=== PATIENT | male | born 1950 | race Caucasian/White ===

== ENCOUNTER 2016-03-12 06:36 | Inpatient (IN) ==
[2016-03-12] MEDS ORDERED: *HR* Succinylcholine 200 MG/10 ML VIAL IVP ONE (07:08)
[2016-03-12] MEDS ORDERED: *HR* Phenylephrine 10 MG/ML VIAL ONE (07:08)
[2016-03-12] MEDS ORDERED: Ondansetron 4 MG/2 ML VIAL ONE (07:08)
[2016-03-12] MEDS ORDERED: Lidocaine -MPF 4% 5 ML AMPUL ONE (07:08)
[2016-03-12] MEDS ORDERED: Lidocaine -MPF 2% 2 ML VIAL ONE ×3 (07:08→11:24)
[2016-03-12] MEDS ORDERED: *HR* Rocuronium Bromide 50 MG/5 ML VIAL ONE (07:08)
[2016-03-12] MEDS ORDERED: Dexamethasone 4 MG/ML VIAL ONE (07:08)
[2016-03-12] MEDS ORDERED: *HR* Propofol 200 MG/20 ML VIAL IVP ONE (07:09)
[2016-03-12] MEDS ORDERED: *HR* FentaNYL (PF) 100 MCG/2 ML VIAL ONE (07:09)
[2016-03-12] MEDS ORDERED: *HR* Heparin 5,000 UNIT/ML VIAL ONE (07:09)
[2016-03-12] MEDS ORDERED: *HR* Remifentanil 2 MG VIAL IVP ONE (07:10)
[2016-03-12] MEDS ORDERED: Albuterol 2.5 MG/3 ML NEBULIZER IH ONE (07:13)
[2016-03-12] MEDS ORDERED: CeFAZolin Pre 2,000 MG/100 ML 2,000 MG/100 ML BAG IVPB ONE (07:13)
[2016-03-12] MEDS ORDERED: NiCARdipine 2.5 MG/10 ML Syringe IVPB ONE (07:31)
[2016-03-12] MEDS ORDERED: Nitroglycerin 0 MG/0 ML INFUS..BTL IVC ONE (07:33)
[2016-03-12] MEDS ORDERED: Heparin 1,000 UNITS/500 mL NS 500 ML ONE ×2 (07:39→07:58)
[2016-03-12] MEDS: Ringers Solution, Lactated 1,000 ML IVC SCH ×3 (07:46→12:01)
[2016-03-12] MEDS ORDERED: Vancomycin 1,000 MG VIAL ONE ×2 (07:58→09:16)
[2016-03-12] MEDS ORDERED: Bupivacaine-MPF 0.25% 10 ML VIAL ONE (07:58)
[2016-03-12] MEDS ORDERED: Protamine Sulfate 50 MG/5 ML VIAL IVP ONE ×2 (07:58→11:31)
[2016-03-12] MEDS ORDERED: Lidocaine 1% 20 ML MDV ONE (07:58)
--- NOTE | 2016-03-12 07:59 | Anesthesia Evaluation PreOp ---
Date of Encounter: 03/12/16 Time of Encounter: 07:56 - Past History Planned Operation: R CEA (redo) Cardiac History: HTN, Hyperlipidemia, Cardiac Surgery (CABG x 3 in 2005), Other (can walk up a flight of stairs, PVD) Pulmonary History: Smoker [employer] History: Denies Any Significant HX Other Medical History: Denies Any Significant HX Anesthesia History: No Prior Anesthetic Complications Alcohol Use: none Drug use: none Medications and Allergies Aspirin 81 mg PO DAILY 03/12/16 [History] Clopidogrel [Plavix] 75 mg PO DAILY 03/12/16 [History] Lisinopril 2.5 mg PO HS 03/12/16 [History] Metoprolol [Lopressor] 100 mg PO BID 03/12/16 [History] Simvastatin [Zocor] 40 mg PO HS 03/12/16 [History] Allergies No Known Allergies Allergy (Verified 03/12/16 07:29) - Meds/Allergy Pre-op Review Medications Reviewed: Yes Allergies Reviewed: Yes Beta Blockers on Current Med List: Yes If Beta Blockers taken, Date/Time (Last Dose taken): 03-12-16 metoprolol 5:30 Anesthesia Results - Labs Laboratory Tests 02/25/16 02/25/16 02/25/16 13:58 13:58 13:58 WBC 4.7 Hgb 13.7 Hct 38.2 Plt Count 194 PT 10.7 INR 1.0 APTT 30.8 Sodium 135 L Potassium 4.9 H Chloride 102 Carbon Dioxide 25 BUN 8 Creatinine 0.75 Est GFR ( Amer) > 60 Est GFR (Non-Af Amer) > 60 BUN/Creatinine Ratio 11 Glucose 101 H Calculated Osmolality 278 L Calcium 9.0 - Imaging EKG: report reviewed, image reviewed (SR, poss LAE) Anesthesia Exam Last Vital Signs Temp 97.7 F 03/12/16 07:31 Pulse 53 03/12/16 07:31 Resp 18 03/12/16 07:31 BP 146/74 03/12/16 07:31 Pulse Ox 98 03/12/16 07:31 Weight: 58 kg NPO (# of Hours): >> 8 hrs - HEENT Pupil (Motor): Pupils equal, EOMI Mallampati: II Teeth: Edentulous Oral Opening: Greater than 3 - 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
--- NOTE | 2016-03-12 08:02 | History & Physical Report ---
Date of Encounter: 03/12/16 Time of Encounter: 07:55 24 Hour HP Update - Instructions Instructions: If the History and Physical is less than 30 days old and was completed prior to A.M. admission and or procedure and has NOT been updated on calendar day of procedure please complete this update prior to performing procedure. - Update Patient reports changes in Medical Condition: No Changes in assessment/condition: No Changes in Medication: No Preop tests/diagnostics Reviewed: Yes Surgery Remains Indicated: Yes Consent for Planned Operative Procedure(s) Verified: Yes - Pre-Operative Checklist Preoperative Checklist Indicated: Yes Prophylactic Antibiotic Ordered: Yes (vancomycin due to risk of MRSA) Home Medications Include Beta Nan: Yes Beta Nan Taken Today (Day of Surgery): Yes Beta Nan Taken Yesterday (Day Prior to Surgery): Yes Is VTE Prophylaxis Indicated?: Yes
[2016-03-12] MEDS ORDERED: *HR* HYDROmorphone (PF) 1 MG/ML SYRINGE IVP PRN (09:26)
[2016-03-12] MEDS ORDERED: Ipratropium Neb 0.5 MG NEBULIZER IH PRN (09:26)
[2016-03-12] MEDS ORDERED: Ondansetron 4 MG/2 ML VIAL IVP PRN ×2 (09:26→13:28)
[2016-03-12] MEDS ORDERED: Albuterol 2.5 MG/3 ML NEBULIZER IH PRN (09:26)
[2016-03-12] MEDS ORDERED: *HR* Labetalol 100 MG/20 ML MDV IVP PRN (09:26)
--- NOTE | 2016-03-12 09:53 | Anesthesia Procedures ---
Date of Encounter: 03/12/16 Time of Encounter: 08:35 Procedures: Anesthesia - Arterial Line Consent obtained: written consent Time out performed: Yes Size (Gauge): 20 Length (inches): Other (1.16) Technique Used: sterile prep, guide wire technique, direct puncture technique Post-Procedure: line taped into place, dry sterile dressing placed Patient tolerated procedure: no complications Complications: none Site: Radial L Vitals: see anesthesia record
[2016-03-12] MEDS ORDERED: EPHEDrine 50 MG/ML VIAL ONE (09:54)
[2016-03-12] MEDS ORDERED: *HR* HYDROmorphone 2 MG/ML SYRINGE ONE (11:11)
[2016-03-12] MEDS ORDERED: *HR* Labetalol 20 MG/4 ML SYRINGE IVP ONE (11:13)
[2016-03-12] MEDS ORDERED: Esmolol 100 MG/10 ML VIAL IVP ONE (11:14)
[2016-03-12] MEDS ORDERED: Dexmedetomidine HCl 200 MCG/50 ML MLS IVC ONE (11:54)
--- NOTE | 2016-03-12 12:36 | Operative Note ---
Date of procedure: 03/12/16 Pre-op diagnosis: Recurrent 80-99% Right internal carotid artery stenosis Post-op diagnosis: same Procedure: 1. Reoperative right carotid endarterectomy with hemashield patch angioplasty. Complications: None Anesthesia: EVELYNEA Surgeon: Jose Leon Estimated blood loss (cc): 100 Specimen: Right carotid plaque Condition: stable Disposition: PACU Procedure in Detail: Indications: The patient is a 66 year old male with a history of carotid stenosis. He previously underwent a right carotid endarterectomy. He recently underwent a carotid duplex and was found to have a recurrent 80-99% right internal carotid artery stenosis. A reoperative right carotid endarterectomy was recommended. Procedure: The patient was identified in the preoperative area. The risks, benefits, and alternatives of the procedure were discussed and all questions were answered. The patient was then taken to the operating room and placed in supine position on the operating table. After induction of general endotracheal anesthesia, the patient was cleaned and draped in normal sterile fashion. A longitudinal incision was made anterior to the left sternocleidomastoid muscle through his previous scar. Hemostasis was obtained via electrocautery. Through a process of blunt, sharp, and electrocautery dissection, the platysma was traversed. The jugular vein was identifiedand retracted lateral. Significant dissection through inflammation and scar was performed in order to expose the carotid bifurcation. Patient received 3000 units of heparin intravenously at this time. Proximal dissection of the common and external carotid arteries were performed circumferentially. Dissection of the internal carotid was performed circumferentially. Vessels loops were passed around the internal and external carotid and an umbilical tape was passed from the common carotid artery. The patient received additional 2000 units of heparin intravenously. Additional heparin was given throughout the case to maintain adequate anticoagulation. After waiting adequate time for the heparin to circulate, the vessels were occluded and a longitudinal arteriotomy was made into the common carotid artery extending into the internal carotid beyond the plaque. Vigorous pulsatile retrograde flow was noted from the internal carotid artery upon release of the loop; therefore, no shunt was placed. A dental Elbert was used to perform a standard endarterectomy. Proximal and distal endpoints were inspected. No elevated flaps were noted. Additional heparin was given throughout the procedure to maintain adequate anticoagulation. A Hemashield patch was cut to fit the defect and sutured in place with running 6 -0 Prolene. Prior to completing the closure, each vessel was flushed and then reoccluded. Heparinized saline was infused into the lumen. The patch was completed. Flow was restored in the external carotid artery, followed the common carotid artery, lastly the internal carotid artery was opened. A low resistance arterialized signal was present within the internal carotid artery beyond the patch. Thrombin and Gelfoam were used to aid in hemostasis. Meticulous hemostasis was obtained throughout the wound with electrocautery. Platelet rich and platelet poor plasma were infused into the wounds. The sternocleidomastoid was reapproximated with interrupted 3-0 Vicryl. Platelet rich and platelet poor plasma were infused into the wound. A TLS drain was brought through a separate stab incision and sutured in place with 0 silk suture. The platysma was then reapproximated with running 3-0 Vicryl. Local anesthetic was infused in the skin. A 3-0 Monocryl was used to reapproximate the skin. Sterile dressing was applied. The patient was extubated, taken to the recovery room in stable condition.
--- NOTE | 2016-03-12 12:55 | Anesthesia Evaluation Post Op ---
Date of Encounter: 03/12/16 Time of Encounter: 12:52 - Vital Signs Vital Signs: Vital Signs/O2 Sat/Glucose, Most Current Temp Pulse Resp BP Pulse Ox 03/12/16 12:28 64 14 117/63 100 03/12/16 12:18 97.1 F L 67 12 123/63 100 - Lungs Lungs: Clear Ascult./Percussion - Airway Airway: Non-obstructed - Cardiovascular Regular Rate - Mental Status Mental Status: Alert & Oriented, Answers Appropriately - Pain Pain Scale: 0 Pain Scale used: Numeric (1 - 10) - Nausea Vomiting Nausea Vomiting: Not Present - Hydration Hydration: Ice chips, Able to void - Discharge PostOp Status: Transfer Patient to floor Anes Supervising Prov Stmt: Pt seen/evaluated, R&B Discussed questions answered and consent obtained. - MD Isabel
[2016-03-12] MEDS ORDERED: *HR* HYDROcodone/Acet 5/325 mg TABLET PO PRN (13:28)
[2016-03-12] MEDS ORDERED: *HR* Promethazine 25 MG/ML VIAL IVP PRN (13:28)
[2016-03-12] MEDS ORDERED: Naloxone 0.4 MG/ML INJ IVP PRN (13:28)
[2016-03-12] MEDS ORDERED: Acetaminophen 325 MG TABLET PO PRN (13:28)
[2016-03-12] MEDS ORDERED: *HR* Labetalol 20 MG/4 ML SYRINGE IVP PRN (13:28)
[2016-03-12] MEDS ORDERED: *HR* Morphine 2 MG/ML SYRINGE IVP PRN (13:28)
[2016-03-12] MEDS ORDERED: *HR* OxyCODONE Immed Rel 5 MG TABLET PO PRN (13:28)
[2016-03-12] MEDS: ceFAZolin 2,000 MG in D5% in Water 100 ML IVPB SCH (17:09)
[2016-03-12] MEDS: *HR* Metoprolol 5 MG/5 ML VIAL IVP SCH (17:09)
[2016-03-12] MEDS ORDERED: Vancomycin 750 MG in D5% in Water 250 ML IVPB ONE ×4 (19:30→23:00)
[2016-03-13] MEDS: *HR* Metoprolol 5 MG/5 ML VIAL IVP SCH ×2 (01:03→06:25)
[2016-03-13] MEDS: ceFAZolin 2,000 MG in D5% in Water 100 ML IVPB SCH (01:39)
[2016-03-13] MEDS ORDERED: *HR* Heparin 5,000 UNIT/ML VIAL SQ SCH ×2 (06:00)
[2016-03-13 07:35] VITALS: BP 102/73
--- NOTE | 2016-03-13 07:56 | Discharge Summary ---
Date of Encounter: 03/13/16 Time of Encounter: 09:10 - Discharge Diagnosis (1) Carotid stenosis, bilateral Priority: Primary Status: Acute Comments: The patient is postoperative day #1 after reoperative right carotid endarterectomy. He tolerated the procedure well. He has no neurologic deficits and his incision is healing. He will be discharged today. (2) Tobacco abuse Priority: Secondary Status: Chronic Comments: He was counseled regarding smoking cessation. (3) Essential hypertension Priority: Secondary Status: Chronic Comments: He was counseled regarding atherosclerotic risk factor reduction. (4) Mixed hyperlipidemia Priority: Secondary Status: Chronic (5) CAD (coronary artery disease) Priority: Secondary Status: Chronic Qualifiers: Coronary Disease-Associated Artery/Lesion type: bypass graft [place] vs. transplanted heart: [place] heart Associated angina: without angina Qualified Code(s): I25.810 - Atherosclerosis of coronary artery bypass graft(s) without angina pectoris (6) Ischemic cardiomyopathy Priority: Secondary Status: Chronic (7) Peripheral vascular disease Priority: Secondary Status: Chronic - Discharge Medications Prescriptions: HYDROcodone/Acet 5/325 mg [[place] 5-325 mg] 1 tab PO Q4H PRN #25 tablet PRN Reason: postoperative pain Home Medications: Aspirin 81 mg PO DAILY 03/12/16 [History] Clopidogrel [Plavix] 75 mg PO DAILY 03/12/16 [History] Lisinopril 2.5 mg PO HS 03/12/16 [History] Metoprolol [Lopressor] 100 mg PO BID 03/12/16 [History] Simvastatin [Zocor] 40 mg PO HS 03/12/16 [History] HYDROcodone/Acet 5/325 mg [[place] 5-325 mg] 1 tab PO Q4H PRN #25 tablet 03/13/16 [Rx] Allergies/Adverse Reactions: Allergies No Known Allergies Allergy (Verified 03/12/16 07:29) Date of admission: 03/12/16 13:23 Primary care physician: Uriel Masters CNP Procedure(s) Performed: Right carotid endarterectomy Discharging clinician: Jose Leon Anticipated date of discharge: 03/13/16 - Patient Status Disposition: Home, Self-Care Condition: Good Functional capacity at discharge: independent ambulation Overall status at discharge: patient is back to baseline - Discharge Instructions Instructions: Hydrocodone/Acetaminophen (By mouth), Carotid Endarterectomy (DC) Follow Up With: Jose Leon MD [Partnered Physician] - 04/27/16 11:00 am Uriel Masters CNP [Primary Care Provider] - 03/19/16 1:40 pm Additional Instructions: May remove bandage and shower 03/14/16. Wash wound gently and pat to dry. Call [phone] with questions or concerns. - Diet and Activity Activity: increase activity as tolerated Diet: advance to your usual diet - Hospital Course Hospital course: Mr. Moreno is a 66 year old male with a recurrent 80-99% right internal carotid artery stenosis. He underwent a reoprative right carotid endarterectomy. He tolerated the procedure well and was discharged in stable condition on postoperative day #1 without complication. - Time Spent with Patient Total time spent providing and/or coordinating discharge services: Exam Vital Signs, Last 4 Hours Temp Pulse Resp BP Pulse Ox 03/13/16 07:32 97.8 F 61 16 102/73 96 03/13/16 04:05 54 General: Present: Conversant, No Apparent Distress HEENT: Present: Trachea midline, Pupils equal Neck: Present: Other (incision clean, dry and intact, no drainage, no hematoma) . Absent: JVD, Lymphadenopathy Cardiac: Present: Reg Rate and Rhythm Lungs: Present: Normal Breath Sounds Neuro: Present: Alert and responsive, No focal deficits noted, Motor nerves grossly intact, Sensory nerves grossly intact Abdomen: Present: Soft Vascular: Present: Normal capillary refill Skin: Present: No rashes noted on visualized skin - VTE Documentation of Mechanical Device: Intermittent pneumatic compression device
[2016-03-13] MEDS ORDERED: Metoprolol 100 MG TABLET PO SCH (09:00)
[2016-03-13] MEDS ORDERED: Aspirin 81 MG TAB.CHEW PO SCH (09:00)
== END 2016-03-13 10:35 | disposition home or self-care (01) | DRG 24 ==
LOC: SAMDAY 06:36 → 2NNU 13:23
PROVIDERS: ADMIT Surgery; ATTEND Surgery

== ENCOUNTER 2019-12-04 16:06 | Inpatient (IN) ==
[2019-12-04 17:46] LABS: Basophils # 0.1 K/mcL (0.0-0.2); Eosinophils # 0.1 K/mcL (0.0-0.6); Lymphocytes # 0.8 K/mcL (0.6-4.6); Mean Corpuscular HGB Conc 33.3 g/dL (31.6-35.5); Mean Corpuscular Hemoglobin 32.7 pg (28.0-33.3); Mean Platelet Volume 10.8 fL (9.4-12.4); Monocytes # 0.6 K/mcL (0.0-1.3); Nucleated Red Blood Cells 0.7 /100 WBC (0); Platelet Count 212 K/mcL (140-400); Red Blood Count 3.06 M/mcL (4.19-5.50); White Blood Count 2.8 K/mcL (4.3-11.1)
[2019-12-04 17:59] LABS: BUN/Creatinine Ratio 15 (6-26); Blood Urea Nitrogen 13 mg/dL (8-23); Calcium 7.9 mg/dL (8.6-10.3); Carbon Dioxide 28 mEq/L (23-29); Chloride 93 mEq/L (98-107); Glucose 86 mg/dL (70-105); Osmolality,Calculated 273 (280-300); Potassium 2.8 mEq/L (3.5-5.1); Sodium 132 mEq/L (136-145); eGFR For African Americans > 60 (> 60); eGFR For Non-African Americans > 60 (> 60)
[2019-12-04 18:04] LABS: Troponin I 0.07 ng/mL (< 0.04)
[2019-12-04 18:08] LABS: Alanine Aminotransferase 6 Units/L (7-52); Albumin 2.6 g/dL (3.5-5.7); Albumin/Globulin Ratio 0.7 (1.1-2.2); Alkaline Phosphatase 121 Units/L (34-104); Aspartate Amino Transferase 16 Units/L (13-39); Bilirubin,Direct 0.7 mg/dL (0.0-0.2); Bilirubin,Indirect 0.8 mg/dL (0.0-1.0); Bilirubin,Total 1.5 mg/dL (0.3-1.0); Globulin 3.6 g/dL (2.4-3.5); INR 1.5; Prothrombin Time 17.1 Seconds (9.4-12.1); Total Protein 6.2 g/dL (6.4-8.9)
[2019-12-04 18:09] LABS: Neutrophils # 1.3 K/mcL (1.6-8.9); Platelet Estimate Normal (Normal)
[2019-12-04] MEDS ORDERED: Potassium Chloride Elixir 20 MEQ/15 ML UDC PO ONE ×2 (18:24→20:52)
[2019-12-04 18:44] LABS: Magnesium 1.8 mg/dL (1.6-2.6)
[2019-12-04] MEDS ORDERED: Naloxone 0.4 MG/ML INJ IVP PRN (19:58)
[2019-12-04] MEDS ORDERED: Acetaminophen 325 MG TABLET PO PRN (19:58)
[2019-12-04] MEDS ORDERED: Albumin 25% 25gram/100mL 25 GM/100 ML IV.SOLN IVPB ONE (20:47)
[2019-12-04] MEDS ORDERED: Magnesium Sulfate 1 GM/102 ML PIGGYBACK IVPB ONE (21:00)
[2019-12-04] MEDS: Nicotine 14 MG PATCH.TD24 TD SCH (22:24)
[2019-12-04] MEDS: *HR* Heparin 5,000 UNIT/ML VIAL SQ SCH (22:24)
[2019-12-04] MEDS ORDERED: 0.9 % Sodium Chloride 250 ML IV ONE (23:46)
[2019-12-04] MEDS ORDERED: 0.9 % Sodium Chloride 250 ML ONE (23:47)
[2019-12-05 00:13] LABS: Adenovirus Not Detected (Not Detect); Bordetella Pertussis Not Detected (Not Detect); Chlamydophila pneumoniae Not Detected (Not Detect); Coronavirus 229E Not Detected (Not Detect); Coronavirus HKU1 Not Detected (Not Detect); Coronavirus NL63 Not Detected (Not Detect); Coronavirus OC43 Not Detected (Not Detect); Human Metapneumovirus Not Detected (Not Detect); Human Rhinovirus/Enterovirus Not Detected (Not Detect); Influenza A Subtype 2009 H1 Not Detected (Not Detect); Influenza B Not Detected (Not Detect); Mycoplasma pneumoniae Not Detected (Not Detect); Parainfluenza Virus 1 Not Detected (Not Detect); Parainfluenza Virus 2 Not Detected (Not Detect); Parainfluenza Virus 3 Not Detected (Not Detect); Parainfluenza Virus 4 Not Detected (Not Detect); Respiratory Syncytial Virus Not Detected (Not Detect); SARS-CoV-2 Not Detected (Not Detect)
[2019-12-05 00:34] LABS: Basophils # 0.2 K/mcL (0.0-0.2); Basophils % 6.1 %; Eosinophils # 0.1 K/mcL (0.0-0.6); Eosinophils % 4.6 %; Immature Granulocytes % 4.2 % (0-4); Lymphocytes # 1.1 K/mcL (0.6-4.6); Lymphocytes % 40.5 %; Mean Corpuscular HGB Conc 33.3 g/dL (31.6-35.5); Mean Corpuscular Hemoglobin 33.7 pg (28.0-33.3); Mean Corpuscular Volume 101.1 fL (83.0-100.0); Mean Platelet Volume 11.1 fL (9.4-12.4); Monocytes # 0.5 K/mcL (0.0-1.3); Monocytes % 20.2 %; Neutrophils # 0.6 K/mcL (1.6-8.9); Platelet Count 172 K/mcL (140-400); Red Blood Count 2.67 M/mcL (4.19-5.50); Red Cell Distribution Width 16.4 % (11.5-14.5); Segmented Neutrophils % 24.4 %; White Blood Count 2.6 K/mcL (4.3-11.1)
[2019-12-05] MEDS ORDERED: Albumin 25% 25gram/100mL 25 GM/100 ML IV.SOLN IVPB ONE (00:39)
[2019-12-05 01:12] LABS: Alanine Aminotransferase 7 Units/L (7-52); Albumin 2.7 g/dL (3.5-5.7); Alkaline Phosphatase 97 Units/L (34-104); Aspartate Amino Transferase 14 Units/L (13-39); BUN/Creatinine Ratio 15 (6-26); Bilirubin,Total 1.4 mg/dL (0.3-1.0); Blood Urea Nitrogen 14 mg/dL (8-23); Calcium 7.8 mg/dL (8.6-10.3); Carbon Dioxide 25 mEq/L (23-29); Chloride 97 mEq/L (98-107); Globulin 2.8 g/dL (2.4-3.5); Glucose 98 mg/dL (70-105); Osmolality,Calculated 276 (280-300); Potassium 3.6 mEq/L (3.5-5.1); Sodium 133 mEq/L (136-145); Total Protein 5.5 g/dL (6.4-8.9); Troponin I 0.11 ng/mL (< 0.04); eGFR For African Americans > 60 (> 60); eGFR For Non-African Americans > 60 (> 60)
[2019-12-05 01:35] LABS: ABG Base Excess 4 mEq/L (-2 to 3); ABG HCO3 28 mEq/L (21-27); ABG Oxygen Saturation 100 % (95-98); ABG PCO2 36 mmHg (35-45); ABG PH 7.49 pH Units (7.32-7.45); ABG PO2 372 mmHg (85-104); ABG TCO2 29 mEq/L (20-26)
[2019-12-05] MEDS ORDERED: *HR* Digoxin 0.5 MG/2 ML AMPUL IVP ONE ×2 (01:39→08:00)
[2019-12-05] MEDS ORDERED: *HR* Heparin 5,000 UNIT/ML VIAL IVP PRN ×2 (01:44)
[2019-12-05 02:14] LABS: Platelet Estimate Normal (Normal)
[2019-12-05] MEDS: Heparin 25,000UNIT/250ML 1/2NS 25,000 UNIT/250 ML IV.SOLN IVC SCH (02:52)
[2019-12-05 03:30] LABS: Heparin anti-factor XA UFH < 0.04 IU/mL (0.30-0.70); INR 1.8; Prothrombin Time 20.4 Seconds (9.4-12.1)
[2019-12-05] MEDS: *HR* Heparin 5,000 UNIT/ML VIAL SQ SCH ×3 (04:44→20:23)
[2019-12-05] MEDS: Budesonide/Formoterol 160/4.5 1 PUFF INH IH SCH ×2 (07:36→22:21)
[2019-12-05] MEDS: Aspirin 81 MG TAB.CHEW PO SCH (07:45)
[2019-12-05] MEDS ORDERED: *HR* Dextrose 50 % in Water (Vial) 50 ML VIAL ONE (09:03)
[2019-12-05] MEDS ORDERED: FUROSEMIDE IVC SCH (14:45)
[2019-12-05] MEDS ORDERED: SODIUM CHLORIDE 0.9% IVC SCH (14:45)
[2019-12-05] MEDS: Furosemide 240 MG in 0.9 % Sodium Chloride 96 ML IVC SCH (15:43)
[2019-12-05] MEDS: Milrinone Premix 20 MG/100 ML 20 MG/100 ML BAG IVC SCH (15:43)
[2019-12-05] MEDS: Norepinephrine 4 MG/254 ML IV.SOLN IVC SCH ×2 (20:23→20:33)
[2019-12-05] MEDS: Nicotine 14 MG PATCH.TD24 TD SCH (20:34)
[2019-12-06] MEDS: Milrinone Premix 20 MG/100 ML 20 MG/100 ML BAG IVC SCH ×2 (03:08→20:50)
[2019-12-06] MEDS: *HR* Heparin 5,000 UNIT/ML VIAL SQ SCH (05:01)
[2019-12-06 06:12] LABS: Basophils # 0.2 K/mcL (0.0-0.2); Basophils % 2.7 %; Eosinophils % 0.7 %; Immature Granulocytes % 1.6 % (0-4); Lymphocytes % 18.2 %; Mean Corpuscular HGB Conc 33.3 g/dL (31.6-35.5); Mean Corpuscular Hemoglobin 32.5 pg (28.0-33.3); Mean Corpuscular Volume 97.6 fL (83.0-100.0); Mean Platelet Volume 10.5 fL (9.4-12.4); Monocytes # 0.8 K/mcL (0.0-1.3); Monocytes % 14.6 %; Neutrophils # 3.5 K/mcL (1.6-8.9); Nucleated Red Blood Cells 0.4 /100 WBC (0); Platelet Count 209 K/mcL (140-400); Red Blood Count 2.46 M/mcL (4.19-5.50); Segmented Neutrophils % 62.2 %
[2019-12-06 06:13] LABS: White Blood Count 5.6 K/mcL (4.3-11.1)
[2019-12-06] MEDS: Norepinephrine 4 MG/254 ML IV.SOLN IVC SCH ×2 (06:23→21:50)
[2019-12-06 06:33] LABS: BUN/Creatinine Ratio 20 (6-26); Blood Urea Nitrogen 19 mg/dL (8-23); Calcium 8.1 mg/dL (8.6-10.3); Carbon Dioxide 28 mEq/L (23-29); Chloride 95 mEq/L (98-107); Glucose 88 mg/dL (70-105); Magnesium 1.7 mg/dL (1.6-2.6); Osmolality,Calculated 274 (280-300); Phosphorous 2.3 mg/dL (2.7-4.5); Potassium 3.4 mEq/L (3.5-5.1); Sodium 131 mEq/L (136-145); eGFR For African Americans > 60 (> 60); eGFR For Non-African Americans > 60 (> 60)
[2019-12-06 06:54] LABS: Folate 8.8 ng/mL (3.0-16.0)
[2019-12-06] MEDS: Budesonide/Formoterol 160/4.5 1 PUFF INH IH SCH ×2 (07:24→22:30)
[2019-12-06] MEDS: Aspirin 81 MG TAB.CHEW PO SCH (08:38)
[2019-12-06] MEDS: Heparin 25,000UNIT/250ML 1/2NS 25,000 UNIT/250 ML IV.SOLN IVC SCH (08:39)
[2019-12-06] MEDS ORDERED: Potassium Chloride 40 MEQ/200 ML BAG IVPB PRN (10:59)
[2019-12-06] MEDS ORDERED: metOLazone 5 MG TABLET PO SCH (11:00)
[2019-12-06] MEDS ORDERED: 0.9 % Sodium Chloride 500 ML ONE (11:15)
[2019-12-06] MEDS ORDERED: Ipratropium/Albuterol Neb 3 ML ONE (15:13)
[2019-12-06] MEDS ORDERED: Ipratropium/Albuterol Neb 3 ML IH ONE (15:38)
[2019-12-06] MEDS ORDERED: Potassium Phosphate 44 MEQ in 0.9 % Sodium Chloride 250 ML IVPB PRN (15:44)
[2019-12-06] MEDS ORDERED: Furosemide 40 MG/4 ML VIAL IVP ONE (15:49)
[2019-12-06] MEDS ORDERED: Morphine Sulfate 2 MG/ML SYRINGE IVP STA (16:04)
[2019-12-06 16:40] LABS: Basophils # 0.1 K/mcL (0.0-0.2); Basophils % 1.4 %; Eosinophils % 0.4 %; Hematocrit 26.6 % (37.5-50.1); Hemoglobin 8.5 g/dL (12.9-16.9); Immature Granulocytes % 2.3 % (0-4); Lymphocytes # 1.3 K/mcL (0.6-4.6); Lymphocytes % 23.3 %; Mean Corpuscular Hemoglobin 32.9 pg (28.0-33.3); Mean Corpuscular Volume 103.1 fL (83.0-100.0); Mean Platelet Volume 10.5 fL (9.4-12.4); Monocytes # 0.8 K/mcL (0.0-1.3); Monocytes % 14.2 %; Neutrophils # 3.3 K/mcL (1.6-8.9); Nucleated Red Blood Cells 0.4 /100 WBC (0); Platelet Count 219 K/mcL (140-400); Red Blood Count 2.58 M/mcL (4.19-5.50); Red Cell Distribution Width 16.3 % (11.5-14.5); Segmented Neutrophils % 58.4 %; White Blood Count 5.6 K/mcL (4.3-11.1)
[2019-12-06] MEDS: Furosemide 240 MG in 0.9 % Sodium Chloride 96 ML IVC SCH (17:00)
[2019-12-06 17:02] LABS: Hypochromasia Present (Not Present); Macrocytosis Present (Not Present); Platelet Estimate Normal (Normal); Polychromasia 1+ (Not Present)
[2019-12-06 17:07] LABS: ABG Base Excess -5 mEq/L (-2 to 3); ABG HCO3 19 mEq/L (21-27); ABG Oxygen Saturation 92 % (95-98); ABG PCO2 31 mmHg (35-45); ABG PO2 63 mmHg (85-104); ABG TCO2 20 mEq/L (20-26)
[2019-12-06 17:08] LABS: BUN/Creatinine Ratio 16 (6-26); Blood Urea Nitrogen 19 mg/dL (8-23); Carbon Dioxide 20 mEq/L (23-29); Chloride 94 mEq/L (98-107); Glucose 116 mg/dL (70-105); Magnesium 2.4 mg/dL (1.6-2.6); Osmolality,Calculated 273 (280-300); Potassium 4.6 mEq/L (3.5-5.1); Sodium 130 mEq/L (136-145); eGFR For African Americans > 60 (> 60); eGFR For Non-African Americans 60 (> 60)
[2019-12-06] MEDS ORDERED: Phenylephrine 10 MG in 0.9 % Sodium Chloride 250 ML IVC SCH (17:45)
[2019-12-06] MEDS ORDERED: Thiamine (B-1) 100 MG in 0.9 % Sodium Chloride 50 ML IVPB STA (17:55)
[2019-12-06] MEDS ORDERED: Midazolam HCl 50 MG/100 ML IV.SOLN IVC SCH (18:00)
[2019-12-06] MEDS ORDERED: FentaNYL (PF) 1,000 MCG/100 ML IV.SOLN IVC SCH (18:00)
[2019-12-06 18:37] LABS: ABG Base Excess -5 mEq/L (-2 to 3); ABG HCO3 17 mEq/L (21-27); ABG Oxygen Saturation 94 % (95-98); ABG PCO2 23 mmHg (35-45); ABG PH 7.48 pH Units (7.32-7.45); ABG PO2 65 mmHg (85-104); ABG TCO2 18 mEq/L (20-26); Blood Gas Modality ASSIST CONTROL
[2019-12-06] MEDS ORDERED: Amiodarone Premix 150 MG/100 ML BAG IVPB ONE (18:45)
[2019-12-06] MEDS: Nicotine 14 MG PATCH.TD24 TD SCH (20:50)
[2019-12-06] MEDS ORDERED: Norepinephrine 8 MG in 0.9 % Sodium Chloride 250 ML IVC SCH (22:00)
[2019-12-06 23:07] VITALS: BP 38/29
[2019-12-06] MEDS ORDERED: Lacri-Lube 3.5 GM TUBE BOTH EYES SCH (23:15)
[2019-12-07] MEDS ORDERED: Hydrocortisone Sodium Succ 100 MG/2 ML VIAL IVP SCH
[2019-12-07] MEDS ORDERED: Amiodarone Premix 360 MG/200 ML BAG IVC ONE (00:49)
[2019-12-07] MEDS ORDERED: Amiodarone Premix 360 MG/200 ML BAG IVC SCH (01:00)
== END 2019-12-07 01:09 | disposition expired ==
LOC: 2ANU 16:06 → EMEROOARM 16:06 → 2ANU 19:41 → ICNU 12-05 09:06
PROVIDERS: ADMIT Internal Medicine; ATTEND Internal Medicine